=== PATIENT | male | born 1985 | race Caucasian/White ===

== ENCOUNTER 2024-07-21 12:02 | Emergency (ER) | payer MEDICAID, OTHER ==
[~2024-07-21] VITALS: Ht 177.8 cm; Wt 57.2 kg
[2024-07-21] MEDS ORDERED: ACET-3117 PO (12:29)
[2024-07-21] MEDS ORDERED: AMOX-430 PO (12:29)
[2024-07-21] MEDS ORDERED: HYDR-3972 PO (12:30)
[2024-07-21] MEDS ORDERED: TRAZ-257 PO (12:30)
[2024-07-21] MEDS ORDERED: QUET50TA PO (12:30)
[2024-07-21] MEDS ORDERED: METH-807 PO (12:30)
[2024-07-21] MEDS ORDERED: FAMO20TA8 PO (12:30)
[2024-07-21] MEDS ORDERED: PROM12.513 PO (12:30)
[2024-07-21 14:19] LABS: BASOPHILS # (AUTO) 0.1 K/UL (0.0-0.2); BASOPHILS % (AUTO) 0.9 % (0.0-2.0); EOSINOPHILS # (AUTO) 0.1 K/uL (0.0-0.7); EOSINOPHILS % (AUTO) 1.9 % (0.0-7.0); HEMATOCRIT 32.7 % (36.7-47.1); HEMOGLOBIN 10.3 g/dL (12.5-16.3); LYMPHOCYTES # (AUTO) 1.4 K/uL (0.8-4.8); LYMPHOCYTES % (AUTO) 20.1 % (20.5-51.5); MEAN CORPUSCULAR HEMOGLOBIN 22.4 uug (23.8-33.4); MEAN CORPUSCULAR HGB CONC 31 g/dL (32.5-36.3); MEAN CORPUSCULAR VOLUME 71.4 fL (73.0-96.2); MONOCYTES # (AUTO) 0.5 K/uL (0.1-1.30); MONOCYTES % (AUTO) 6.9 % (0.0-11.0); NEUTROPHILS % (AUTO) 70.2 % (38.5-71.5); PLATELET COUNT (AUTO) 543 K/uL (152-348); RED BLOOD CELL COUNT(AUTO) 4.58 MIL/uL (4.06-5.63); RED CELL DISTRIBUTION WIDTH 16.9 % (12.1-16.2); WHITE BLOOD COUNT (AUTO) 7.1 K/uL (3.6-10.2)
[2024-07-21 14:26] LABS: CALCIUM 9.8 mg/dL (8.5-10.1); CARBON DIOXIDE 29 mmol/L (21-32); CHLORIDE 102 mmol/L (98-107); CREATININE 0.5 mg/dL (0.6-1.3); GLUCOSE 92 mg/dL (74-106); POTASSIUM 4.1 mmol/L (3.5-5.1); SODIUM SERUM 138 mmol/L (136-145); UREA NITROGEN, BLOOD 22 mg/dL (7-18)
[2024-07-21 14:27] LABS: DIFFERENTIAL COMMENT 1
[2024-07-21 14:39] LABS: ALANINE AMINOTRANSFERASE 17 U/L (16-63); ALBUMIN 2.7 g/dL (3.4-5.0); ALKALINE PHOSPHATASE 100 U/L (50-136); ASPARTATE AMINOTRANSFERASE < 5 U/L (15-37); BILIRUBIN,DIRECT 0.1 mg/dL (0.0-0.2); BILIRUBIN,TOTAL 0.2 mg/dL (0.2-1.0); NT-PRO BNP 161 pg/mL (0-125); TOTAL PROTEIN, SERUM 9.2 g/dL (6.4-8.2)
[2024-07-21] MEDS ORDERED: HYDROCODONE/APAP 5-325MG TABLET PO PRN (19:00)
[2024-07-21] MEDS ORDERED: ONDANSETRON 4 MG/2 ML VIAL IV PRN (19:00)
[2024-07-21] MEDS ORDERED: MAGNESIUM HYDROXIDE 30 ML LIQUID UDC PO PRN (19:00)
[2024-07-21] MEDS ORDERED: ACETAMINOPHEN 325 MG TABLET PO PRN (19:00)
[2024-07-21] MEDS ORDERED: REMEDY ESSENTIAL ZINC PASTE 113 GM TP PRN (19:00)
[2024-07-21 19:30] VITALS: O2SAT 96
[2024-07-22] MEDS ORDERED: PANTOPRAZOLE SODIUM 40 MG TABLET.DR PO SCH (07:00)
== END 2024-07-21 23:28 | disposition short-term general hospital (02) ==
LOC: ER 12:02
DX: I31.39 Other pericardial effusion (noninflammatory) (principal); Z20.822 Contact with and (suspected) exposure to COVID-19
CPT/HCPCS: 36415; 71045; 71250; 84484; 85025; 93005; A4606; A4663

== ENCOUNTER 2025-03-22 13:09 | Emergency (ER) | payer MEDICAID ==
[~2025-03-22] VITALS: Ht 165.1 cm; Wt 59.0 kg
[~2025-03-22 13:09] MED LIST: ACET-3117 PO; AMOX-430 PO; FAMO20TA8 PO; HYDR-3972 PO; METH-807 PO; PROM12.513 PO; QUET50TA PO; TRAZ-257 PO
[2025-03-22] MEDS ORDERED: [UNRECOGNIZED DRUG - CODE] PO (13:38)
[2025-03-22] MEDS ORDERED: QUET25TA PO (13:38)
[2025-03-22] MEDS ORDERED: MAGN400O6 PO (13:38)
[2025-03-22] MEDS ORDERED: TRIA60LO7 TOP (13:38)
[2025-03-22] MEDS ORDERED: MULT-213 PO (13:38)
[2025-03-22] MEDS ORDERED: MAG-55 PO (13:38)
[2025-03-22] MEDS ORDERED: BUPR8TAB4 SL (13:38)
[2025-03-22] MEDS ORDERED: ASCO500C18 PO (13:38)
[2025-03-22] MEDS ORDERED: CEFAZOLIN 1 G VIAL ONE (13:41)
[2025-03-22] MEDS: CEFAZOLIN 2 G in IV DEXTROSE 5% 100 ML IV ONE (13:44)
[2025-03-22 13:47] LABS: BASOPHILS % (AUTO) 0.6 % (0.0-2.0); HEMATOCRIT 28.5 % (36.7-47.1); HEMOGLOBIN 9.1 g/dL (12.5-16.3); LYMPHOCYTES # (AUTO) 0.7 K/uL (0.8-4.8); MEAN CORPUSCULAR HEMOGLOBIN 24.8 uug (23.8-33.4); MEAN CORPUSCULAR HGB CONC 32 g/dL (32.5-36.3); MEAN CORPUSCULAR VOLUME 77.6 fL (73.0-96.2); MONOCYTES # (AUTO) 0.5 K/uL (0.1-1.30); MONOCYTES % (AUTO) 15.8 % (0.0-11.0); NEUTROPHILS # (AUTO) 2.1 K/uL (1.8-8.9); NEUTROPHILS % (AUTO) 62.6 % (38.5-71.5); PLATELET COUNT (AUTO) 213 K/uL (152-348); RED BLOOD CELL COUNT(AUTO) 3.67 MIL/uL (4.06-5.63); RED CELL DISTRIBUTION WIDTH 14.3 % (12.1-16.2); WHITE BLOOD COUNT (AUTO) 3.4 K/uL (3.6-10.2)
[2025-03-22 13:51] LABS: DIFFERENTIAL COMMENT 1
[2025-03-22 14:05] LABS: CALCIUM 7.7 mg/dL (8.5-10.1); POTASSIUM 3.1 mmol/L (3.5-5.1)
[2025-03-22 14:10] LABS: ALBUMIN 2.8 g/dL (3.4-5.0); BILIRUBIN,DIRECT 0.1 mg/dL (0.0-0.2); BILIRUBIN,TOTAL 0.3 mg/dL (0.2-1.0); TOTAL PROTEIN, SERUM 7.4 g/dL (6.4-8.2)
[2025-03-22 14:14] LABS: LACTIC ACID 2.4 mmol/L (0.4-2.0)
[2025-03-22] MEDS: POTASSIUM CHLORIDE 20 MEQ TAB.PRT.SR PO ONE (14:14)
[2025-03-22] MEDS: IV NORMAL SALINE 1000 ML BAG IV ONE (14:34)
[2025-03-22] MEDS ORDERED: POTASSIUM CHLORIDE 20 MEQ TAB.PRT.SR ONE (14:36)
[2025-03-22 14:57] LABS: BAND % (MANUAL) 1 % (0-10); LYMPHOCYTES % (MANUAL) 22 % (20-40); MONOCYTES % (MANUAL) 12 % (2-10); NEUTROPHILS % (MANUAL) 65 % (42-75); PLATELET ESTIMATE ADEQUATE
[2025-03-22 14:58] LABS: ANISOCYTOSIS 1+; HYPOCHROMASIA 1+
[2025-03-22 14:59] LABS: TEAR DROP CELLS OCC
[2025-03-22 15:58] LABS: *BILIRUBIN,URIN NEGATIVE (NEGATIVE); *BLOOD, URINE NEGATIVE (NEGATIVE); *CLARITY,URINE CLEAR (CLEAR); *COLOR,URINE YELLOW (YELLOW); *KETONES,URINE NEGATIVE (NEGATIVE); *PROTEIN,URINE 1+ (NEGATIVE); *UROBILINOGEN,URINE 0.2 E.U./dl (NORMAL); LEUKOCYTE ESTERASE ,URINE NEGATIVE (NEGATIVE); NITRITE, URINE NEGATIVE (NEGATIVE); PH,URINE 5.5 (5.0-8.0); UGLUCOSE NEGATIVE (NEGATIVE)
[2025-03-22 16:03] LABS: RBC,URINE NONE SEEN /HPF (0-3); WBC,URINE 0-3 /HPF (0-3)
[2025-03-22 16:23] LABS: BACTERIA,URINE NONE SEEN /HPF (NONE SEEN); MUCUS,URINE MODERATE /LPF (0-FEW); SQUAMOUS EPITHELIAL CELL,UR FEW /HPF (NONE SEEN)
[2025-03-22] MEDS ORDERED: diphenhydrAMINE 50 MG/1 ML VIAL IV PRN (16:30)
[2025-03-22] MEDS ORDERED: MAGNESIUM HYDROXIDE 30 ML LIQUID UDC PO PRN (16:30)
[2025-03-22] MEDS ORDERED: HYDROCODONE/APAP 5-325MG TABLET PO PRN (16:30)
[2025-03-22] MEDS ORDERED: ONDANSETRON 4 MG/2 ML VIAL IV PRN (16:30)
[2025-03-22] MEDS ORDERED: Medication Not On Formulary EA (Acetaminophen 650 MG) PO PRN (16:30)
[2025-03-22] MEDS: FAMOTIDINE 20 MG TABLET PO SCH (17:00)
[2025-03-22] MEDS ORDERED: FAMOTIDINE 20 MG TABLET ONE (17:14)
[2025-03-22 20:00] VITALS: O2SAT 96
[2025-03-22] MEDS ORDERED: Medication Not On Formulary EA (Quetiapine Fumarate (Seroquel) 50 MG) PO SCH (21:00)
[2025-03-22] MEDS ORDERED: DOXYCYCLINE HYCLATE 100 MG TABLET PO SCH (21:00)
[2025-03-22] MEDS ORDERED: ACIDOPHILUS/BULGARICUS CHEW TAB PO SCH (21:00)
[2025-03-22] MEDS ORDERED: TRAZODONE 100 MG TABLET PO SCH (21:00)
[2025-03-22] MEDS ORDERED: DOCUSATE SODIUM 250 MG CAPSULE PO SCH (21:00)
[2025-03-22] MEDS ORDERED: methylPREDNISolone SOD SUCC 40 MG/ML VIAL IV SCH (22:00)
[2025-03-22] MEDS ORDERED: METHOCARBAMOL 750 MG TABLET PO SCH (22:00)
[2025-03-23] MEDS ORDERED: PANTOPRAZOLE SODIUM 40 MG TABLET.DR PO SCH (07:00)
[2025-03-23] MEDS ORDERED: Medication Not On Formulary EA (Multivitamins W-Minerals (Multivitamin With Minerals) 1 PO SCH (09:00)
[2025-03-23] MEDS ORDERED: ARGININE HCL PO SCH (09:00)
[2025-03-23] MEDS ORDERED: Medication Not On Formulary EA (Ascorbic Acid (Vitamin C) 500 MG) PO SCH (09:00)
[2025-03-23] MEDS ORDERED: QUETIAPINE FUMARATE 25 MG TABLET PO SCH (09:00)
== END 2025-03-22 20:20 | disposition short-term general hospital (02) ==
LOC: ER 13:09
DX: E86.0 Dehydration (principal); L98.499 Non-pressure chronic ulcer of skin of other sites with unspecified severity; Z79.899 Other long term (current) drug therapy; Z87.39 Personal history of other diseases of the musculoskeletal system and connective tissue
CPT/HCPCS: 99285; 96365; 87081; 80076; 80048; 81001; 85025; 84145; 86140; 36415; 83605 ×2; 87040; 85007; J0690; J7040; A4606; A4663